=== PATIENT | male | born 1990 | race Caucasian/White ===

== ENCOUNTER 2016-06-09 10:19 | Emergency (ER) | payer SELFPAY ==
[~2016-06-09] VITALS: Ht 162.6 cm; Wt 78.0 kg
[~2016-06-09 10:19] MED LIST: HYDR-762 PO; IBUP-1542 PO
[2016-06-09 10:20] VITALS: Ht 162.6 cm; Wt 78.0 kg
[2016-06-09] MEDS ORDERED: KETOROLAC 30 MG INJ IM STA (10:44)
[2016-06-09] MEDS ORDERED: HYDROCODONE/APAP (5/325) TAB PO ONE (11:00)
--- NOTE | 2016-06-09 11:01 | ERD ---
ER Documentation Chief Complaint Date/Time DATE: 06/09/16 TIME: 10:55 Chief Complaint right foot pain/injury, and right hand pain HPI This is a 26-year-old male presenting to the emergency department for right foot pain and right hand pain following injury today. Patient states he was stepping out of his SUV when he missed the step and landed with his right foot and right hand curled underneath him. Patient states he developed pain immediately following injury. No audible pop. Remains neurovascularly intact. Denies loss of sensation, numbness or tingling. Rates pain 5/10 to distal aspect of right foot and first and second digit on right hand. He did not take any medications at home. No swelling. Unable to bear weight due to right foot. ROS All systems reviewed and are negative except as per history of present illness. Medications Home Meds Active Scripts Hydrocodone/Acetaminophen ([place] 5-325 Tablet) 1 Each Tablet, 1 TAB PO Q6H Y for PAIN, #15 TAB Prov:MITRA MERCEDES NP 06/09/16 Ibuprofen* (Motrin*) 600 Mg Tab, 600 MG PO Q6, #15 TAB Prov:MITRA MERCEDES NP 06/09/16 Hydrocodone Bit-Acetaminophen* ([place]*) 10-325 Mg Tablet, 1 TAB PO Q6 Y for PAIN , #7 TAB Prov:TESSY AVERY MD 06/03/15 Ibuprofen* (Motrin*) 600 Mg Tab, 600 MG PO Q6H Y for PAIN AND OR ELEVATED TEMP, #30 TAB Prov:TESSY AVERY MD 06/03/15 Allergies Allergies: Coded Allergies: No Known Allergy (Unverified , 06/03/15) PMhx/Soc Medical and Surgical Hx: pt denies Medical Hx, pt denies Surgical Hx Hx Alcohol Use: No Hx Substance Use: No Hx Tobacco Use: No Physical Exam Vitals Vital Signs Date Time Temp Pulse Resp B/P Pulse Ox O2 Delivery O2 Flow Rate FiO2 06/09/16 10:20 98.1 76 18 126/76 99 Physical Exam Const: No acute distress, alert Head: Atraumatic Eyes: Normal Conjunctiva ENT: Normal External Ears, Nose and Mouth. Neck: Full range of motion..~ No meningismus. Resp: Clear to auscultation bilaterally Cardio: Regular rate and rhythm, no murmurs Abd: Soft, non tender, non distended. Normal bowel sounds Skin: No petechiae or rashes Back: No midline or flank tenderness Ext: No cyanosis, or edema. Full mobility to right foot. Pedal pulses palpable. No loss of sensation. Can flex and extend right foot without difficulty. Pain to 1st and 2nd digit on right hand. Radial pulses 2+ bilaterally. No swelling. Neur: Awake and alert Psych: Normal Mood and Affect Results 24 hrs Current Medications Medications (Trade) Dose Ordered Sig/Titi Route PRN Reason Start Time Stop Time Status Last Admin Dose Admin Ketorolac Tromethamine (Toradol) 30 mg ONCE STAT IM 06/09/16 10:44 06/09/16 10:47 DC 06/09/16 11:01 Acetaminophen/ Hydrocodone Bitart ([place] (5/325)) 1 tab ONCE ONCE PO 06/09/16 11:00 06/09/16 11:01 DC 06/09/16 11:01 Procedures/MDM ED COURSE: The patient was stable throughout ED course. I kept the patient and/or family informed of laboratory and diagnostic imaging results throughout the ED course. Toradol and [place] given per staff appraiser Imaging X-ray right foot Patient: KWAN LOMELI : 1990 Age: 26 Sex: M MR #: [id number] DOS: 06/09/16 1044 Ordering MD: MITRA MERCEDES NP Location: [facility] Room/Bed: PROCEDURE: Three-view left XR Foot. CLINICAL INDICATION: Status post fall with generalized right foot pain. TECHNIQUE: AP, lateral and oblique views of the left foot was obtained. The images were reviewed on a PACS workstation. COMPARISON: No. FINDINGS: There is generalized soft tissue swelling over the dorsal and plantar surface of the distal right foot. The bony elements and joint spaces are normal. IMPRESSION: 1. There is no evidence of an acute fracture or dislocation involving the right foot. 2. There is generalized soft tissue swelling of the distal right foot. X-ray right hand Patient: KWAN LOMELI : 1990 Age: 26 Sex: M MR #: [id number] DOS: 06/09/16 1044 Ordering MD: MITRA MERCEDES NP Location: [facility] Room/Bed: PROCEDURE: XR Right Hand CLINICAL INDICATION: Status post fall, pain TECHNIQUE: AP, oblique, and lateral radiographs were submitted. COMPARISON: None FINDINGS: Osseous structures: There is a fracture through the base of the second metacarpal which is not significantly displaced. The remaining osseous elements appear intact. Joint spaces: are well maintained, with no significant spurring, erosion or joint effusion evident. Soft tissues: appear unremarkable. IMPRESSION: Nondisplaced fracture through the base of the right second metacarpal. MDM: This is a 26-year-old male presenting to the emergency department for right foot and right hand pain following injury today. Patient fell from his SUV while getting out of the vehicle. No swelling or ecchymosis on physical exam. No erythema. Patient has full mobility to right foot. Pedal pulses are intact. Radial pulses 2+ bilaterally. Patient has difficulty extending and flexing first and second digit on right hand. X-ray of right foot and x-ray of right hand were ordered. Patient given Toradol and [place] per staff appraiser. Patient 's x-ray of right foot reviewed by radiologist as no evidence of an acute fracture or dislocation involving the right foot. There is generalized soft tissue swelling of the distal right foot. X-ray right hand reviewed by radiologist as nondisplaced fracture through the base of the right second metacarpal. [place] tape and finger board were applied for paitent while in the ED. Neurovascularly intact post splint placement with good fit. Explained results to patient. Diagnosis is metacarpal fracture. Low suspicion for dislocation or compartment syndrome. Patient is appropriate for outpatient management will be given prescriptions for ibuprofen and [place]. Instructed patient to follow-up with primary care provider or auto radiator specialist in the next 24-48 hours for additional management and reassessment. Return to ED for any high fever, chest pain, difficulty breathing, shortness breath, wheezing, vomiting, diarrhea, abdominal pain or any new or worsening symptoms. Patient verbalizes understanding. All questions answered at discharge. Departure Diagnosis: Primary Impression: Metacarpal bone fracture Encounter type: initial encounter Metacarpal bone: second Fracture type: closed Metacarpal location: base Fracture alignment: nondisplaced Laterality: right Qualified Code: S62.340A - Closed nondisplaced fracture of base of second metacarpal bone of right hand, initial encounter Condition: Stable MITRA MERCEDES NP Jun 09, 2016 11:01
--- NOTE | 2016-06-09 11:53 | RADRPT ---
PROCEDURE: Three-view left XR Foot. CLINICAL INDICATION: Status post fall with generalized right foot pain. TECHNIQUE: AP, lateral and oblique views of the left foot was obtained. The images were reviewed on a PACS workstation. COMPARISON: No. FINDINGS: There is generalized soft tissue swelling over the dorsal and plantar surface of the distal right fo ot. The bony elements and joint spaces are normal. IMPRESSION: 1. There is no evidence of an acute fracture or dislocation involving the right foot. 2. There is generalized soft tissue swelling of the distal right foot. RPTAT:AAJJ Physician Fausto Date Time Electronically viewed and signed by Physician Fausto on 06/09/2016 11:47 DARIA/
--- NOTE | 2016-06-09 11:53 | RADRPT ---
PROCEDURE: XR Right Hand CLINICAL INDICATION: Status post fall, pain TECHNIQUE: AP, oblique, and lateral radiographs were submitted. COMPARISON: None FINDINGS: Osseous structures: There is a fracture through the base of the second metacarpal which is not signi ficantly displaced. The remaining osseous elements appear intact. Joint spaces: are well maintained, with no significant spurring, erosion or joint effusion evident. Soft tissues: appear unremarkable. IMPRESSION: Nondisplaced fracture through the base of the right second metacarpal. Physician Praneeth Date Time Electronically viewed and signed by Stanislaw Novak Physician on 06/09/2016 11:50 RH/
[2016-06-09] MEDS ORDERED: IBUP-1542 PO (12:48)
[2016-06-09] MEDS ORDERED: HYDR-906 PO (12:48)
[2016-06-09 12:53] VITALS: BP 130/76; PULSE 75; RESP 18; TEMP 98.1
== END 2016-06-09 12:53 | disposition home or self-care (01) ==
LOC: FTE 10:19
DX: S62.340A Nondisplaced fracture of base of second metacarpal bone, right hand, initial encounter for closed fracture (principal); W18.41XA Slipping, tripping and stumbling without falling due to stepping on object, initial encounter; Y92.9 Unspecified place or not applicable
CPT/HCPCS: 29125; 29130; 73130; 73630; J1885; 96372